=== PATIENT | male | born 1960 | race Caucasian/White ===

== ENCOUNTER 2017-08-02 08:36 | Day surgery (SDC) | payer BC ==
[~2017-08-02] VITALS: Ht 177.8 cm; Wt 74.8 kg
[~2017-08-02 08:36] MED LIST: ASPIR 8181 M1 PO; AZULFIDINE500 MG PO; FISH OIL 1,0001 EAC7 PO; PROTONIX40 MG PO
[2017-08-02 09:02] VITALS: BP 172/105
[2017-08-02] MEDS ORDERED: PERCOCET 5/31 TABLET PO (11:27)
[2017-08-02] MEDS ORDERED: COLACE100 MG PO (11:27)
[2017-08-02 13:16] VITALS: BP 156/83
[2017-08-02 14:20] VITALS: BP 149/92
[2017-08-02 15:10] VITALS: BP 146/90
== END 2017-08-02 15:10 | disposition home or self-care (01) ==
LOC: SDC 08:36 → EDSTATUS 08:57 → SDC 08:58
PROC: 0FT44ZZ Resection of Gallbladder, Percutaneous Endoscopic Approach (ICD-10-PCS; principal; 2017-08-02)
DX: K80.12 Calculus of gallbladder with acute and chronic cholecystitis without obstruction (principal); K21.9 Gastro-esophageal reflux disease without esophagitis; M06.9 Rheumatoid arthritis, unspecified
CPT/HCPCS: 88304; C1769; J0330; J0690; J1100; J1885; J2250; J3010